=== PATIENT | male | born 1965 | race Caucasian/White ===

== ENCOUNTER 2017-10-25 21:56 | Emergency (ER) | payer BC ==
--- NOTE | 2017-10-25 21:57 | UC ---
Skin Complaint HPI - HPI Summary HPI Summary: 52 yo male presents with rash to right index finger since this morning. He tells me that he was outdoors a lot in the last few days and has several bug bites all over his body. Yesterday he noticed a bite to his right index finger. This morning he woke up and the area developed in blisters. He saw his PCP and was diagnosed with an allergic/contact reaction and prescribed prednisone. He has not started taking the prednisone yet. He comes to because he is concerned that there seems to be more bumps forming with increased redness. Denies fever, chills, difficulty breathing, SOB, or chest pain. - History of Current Complaint Time Seen by Provider: 10/25/17 21:57 Stated Complaint: SORE ON HAND Hx Obtained From: Patient Onset/Duration: Sudden Onset Timing: Constant Onset Severity: Mild Current Severity: Mild Pain Intensity: 3 Pain Scale Used: 0-10 Numeric - Allergy/Home Medications Allergies/Adverse Reactions: Allergies Allergy/AdvReac Type Severity Reaction Status Date / Time seasonal Allergy Unknown Uncoded 10/25/17 22:01 hayfever/environmental Reaction Details Review of Systems Constitutional: Negative Skin: Other - Blister right index finger Respiratory: Negative Cardiovascular: Negative Neurovascular: Negative Neurological: Negative Psychological: Negative All Other Systems Reviewed And Are Negative: Yes PMH/Surg Hx/FS Hx/Imm Hx Cardiovascular History: Hypertension GI/ History: Gastroesophageal Reflux - Surgical History Surgical History: Yes Surgery Procedure, Year, and Place: 2006 LAPAROSCOPIC CHOLECYSTECTOMY, [facility] [place]. 2003 L[place]OMA REMOVED, [facility] [place]. 1995 TESTICLE TORSION REPAIR, [facility] – [place]. 1968 TONSILLECTOMY, [place], [place] - Family History Known Family History: Positive: Other - No FHx CVA, diverticulitis, diverticulosis - Social History Occupation: Employed Full-time Lives: With Family Alcohol Use: Rare Substance Use Type: None Smoking Status (MU): Never Smoked Tobacco Physical Exam - Summary Physical Exam Summary: GENERAL: NAD. WDWN. No pain distress. SKIN: RIGHT index finger: Dorsal surface between the PIP and MCP there are a cluster of blisters 1mm-3mm in size with clear fluid and scant ecchymosis and erythema. Mildly TTP. Faint erythema extending to mid 2nd MC without tenderness or warmth. No streaking, bleeding, or drainage. NECK: Supple. Nontender. No lymphadenopathy. CHEST: No accessory muscle use. Breathing comfortably and in no distress. CV: Pulses intact. Cap refill <2seconds NEURO: Alert. PSYCH: Age appropriate behavior. Triage Information Reviewed: Yes Vital Signs: Vital Signs: Temp Pulse Resp BP Pulse Ox 99.2 F 85 18 136/72 100 10/25/17 21:57 10/25/17 21:57 10/25/17 21:57 10/25/17 21:57 10/25/17 21:57 Vital Signs Reviewed: Yes Course/Dx - Course Course Of Treatment: Suspect allergic reaction. Pt is very concerned about a cellulitis and wishes to be on antibiotics. Will start him with keflex and advise him to start his prednisone prescribed by his PCP. - Diagnoses Provider Diagnoses: Contact allergic reaction to right index finger Discharge - Sign-Out/Discharge Documenting (check all that apply): Patient Departure All imaging exams completed and their final reports reviewed: No Studies - Discharge Plan Condition: Stable Disposition: HOME Prescriptions: Cephalexin CAP* [Keflex CAP*] 500 mg PO BID #14 cap Patient Education Materials: Acute Rash (ED) Referrals: Donn Garcia DO [Primary Care Provider] - Additional Instructions: If you develop a fever, shortness of breath, chest pain, new or worsening symptoms - please call your PCP or go to the ED. Your blood pressure was high at todays visit. Please see your primary provider within 4 weeks for recheck and re-evaluation. 1) Please start your steroid medication that your primary doctor prescribed for you earlier today - Billing Disposition and Condition Condition: STABLE Disposition: Home - Attestation Statements Provider Attestation: I was available for consult. This patient was seen by the JOSE. The patient was not presented to, seen by, or examined by me. -Juju
[2017-10-25 22:01] VITALS: BP 136/72
--- OUTSIDE RECORDS SUMMARY | 2017-10-25 22:01 | XMS REPORT ---
:1965 External Reference #:[id number] Author Organization [facility] Address [address] [place] [address] Phone [phone] Care Team Providers Name Role Phone HCP given Primary Care Physician Unavailable Payers Type Date Identification Numbers Payment Provider Subscriber Commercial Policy Number: [id number] [employer] Ind/Ppo/Hmo/Pos Keke Guy PayID: [id number] [id number] [place] [id number] Problems Date Description Provider Status Onset: 10/19/2014 Essential hypertension Donn Garcia D.O. Active Onset: 01/18/2016 Iron deficiency anemia Mary Blanton PA Active Onset: 01/05/2015 Acute maxillary sinusitis Donn Garcia D.O. Active Onset: 10/19/2014 Essential hypertension Donn Garcia D.O. Active Onset: 10/19/2014 Gastroesophageal reflux disease Donn Garcia D.O. Active Family History Date Family Member(s) Problem(s) Comments Father Melanoma Mother CLL Mother Melanoma Paternal Grandmother CLL Social History Type Date Description Comments Marital Status Work Status Currently Working Cigarette Use Denies Cigarette Use ETOH Use 09/06/2015 Rarely consumes alcohol Recreational Drug Use Denies Drug Use Smoking Non Smoker Daily Caffeine Consumes Caffeine OCCASIONAL Exercise Type/Frequency Exercises sporadically Sun Exposure Uses sunscreen Seat Belt/Car Seat Seat Belt Use - Yes Guns in Home No Smoke Alarms Yes smoke alarm Currently Active Patient is currently sexually active Allergies, Adverse Reactions, Alerts Date Description Reaction Status Severity Comments 10/19/2014 NKDA active Medications Medication Date Status Form Strength Qnty SIG Indications Ordering Provider Methylprednisolon 10/25 Hx Tablets 4mg 21tab 6 tabs on L23.89 Sopchak, e s day 1; Donn, - then 5 D.O. 10/31 tabs day2; then 4 tabs ay3; then 3 tabs day4; then 2 tabs day 5; then 1 tab day 6 Vitamin D3 07/30 Active Capsules 5000Unit 90cap 1 by mouth Sopchak, Maximum Strength s every day Donn, or 7 D.O. tablets once a week Viagra 07/30 Active Tablets 25mg 30tab take 1-2 F52.21 cha s hours Donn, before D.O. anticipate d sexual intercours e Pantoprazole 10/[address] 40mg 90tab take one K21.9 Silcoff, Sodium s tablet by Richardson mouth once M.D. daily for acid reflux Triamterene/Bisbee 10/13 Active Capsules 37.5-25mg 90cap Take One I10 Sopchak, chlorothiazide s Capsule By Donn, Mouth D.O. Every Day Nasonex 05/25 Active Suspension 50mcg/Act 17gm spray 1 co spray into Richardson, each M.D. nostril every night at bedtime as needed Viagra 06/26 Hx Tablets 100mg 2tabs take 02/06 F5.21 to one Donn, - tablet up D.O. 07/30 to once daily as needed for erectile dysfunctio n; max 1 dose/day Doxycycline 02/14 Hx Capsules 100mg 20cap 1 twice a J20.9 Jose, Hyclate s day for 10 Donn, - days D.O. 02/24 Azithromycin 10/25 Hx Tablets 250mg 6tabs 2 tabs by J20.9 Silcoff, mouth Richardson, - daily x1 M.D. 02/13 day then tab by mouth daily x4 days Afrin Sinus 04/28 Hx Solution 0.05% 15ml inhale 2 J01.00 Sopcha sprays Donn, - into D.O. 05/01 nostril times per day every 10 to 12 hours as needed for stuffy nose for 3 days only! Amoxicillin/Clavu 04/28 Hx Tablets 875-125mg 20tab 1 by mouth J01.00 Jose, lanate s twice a Donn, - day D.O. 05/08 Iferex 150 09/05 Hx Capsules 150mg 100ca 1 tablet D50.9 Silco, ps daily, for Richardson, - iron M.D. 11/20 deficiency /2015 Ondansetron 09/04 Hx Tablets 4mg prn Dispers - 11/20 Ciprofloxacin HCL 08/24 Hx Tablets 500mg 10tab 1 by mouth R19.7 Silcoff , s twice a Richardson, - day for M.D. 08/29 3-5 days, for diarrheal illness Flonase Allergy 08/22 Hx Suspension 50mcg/Act 47.40 2 sprays J01.00 Jose, 0ml twice a Donn, - day until D.O. 09/22 better. /2015 Vitamin D3 01/04 Hx Capsules 5000Unit take one capsule by - mouth 01/16 every day Amoxicillin 11/10 Hx Capsules 500mg 42cap 2 cap by J01.00 Sopchak, s mouth Donn, - twice a D.O. Afrin Sinus 11/10 Hx Solution 0.05% 15ml administer J01.00 Sopchak, 2 or 3 Donn, - sprays D.O. 11/20 (0.05% solution) into each nostril anthony administer 2 or 3 sprays (0.05% solution) into each nostril Neti Pot Kit 11/10 Hx Kit 2300-700m 1unit use as J01.00 Sopvaishalik, Sinus Wash/Clear g s directed Donn, View Kettle - D.O. 12/11 Immunizations CPT Code Status Date Vaccine Lot # [id number] Given 06/05/2017 Shingrix Zoster (Shingles) Vaccine (HZV) [id number] Recomb,Subnit,Adjuvanted 97199 Given 12/31/2016 Influenza Virus Vaccine, Quadrivalent, Split, Preservative Free 98433 Given 11/22/2015 Influenza Virus Vaccine, Quadrivalent, Split, [id number] Preservative Free 23348 Given 01/05/2015 Influenza Virus Vaccine, Quadrivalent, Split, [id number] Preservative Free 19421 Given 10/30/2013 Flu, Split Virus 3Yrs 43803 Given 10/26/2011 Flu, Split Virus 3Yrs 01227 Given 05/29/2011 Adacel or Boostrix, TDaP 65291 Given 10/21/1999 Td Immunization Vital Signs Date Vital Result Comment 10/25/2017 BP Systolic 132 mmHg BP Diastolic 70 mmHg Weight 191.00 lb 07/30/2017 BP Systolic 154 mmHg BP Diastolic 82 mmHg BP Systolic Recheck 148 mmHg recheck ra BP Diastolic Recheck 80 mmHg recheck ra Weight 193.00 lb 06/26/2017 BP Systolic 134 mmHg BP Diastolic 78 mmHg 06/05/2017 BP Systolic 140 mmHg BP Diastolic 84 mmHg Height 69.5 inches 5'9.50" Weight 188.00 lb BMI (Body Mass Index) 27.4 kg/m2 04/11/2017 BP Systolic 150 mmHg BP Diastolic 90 mmHg BP Systolic Recheck 142 mmHg BP Diastolic Recheck 90 mmHg Weight 189.00 lb 02/14/2017 BP Systolic 120 mmHg BP Diastolic 78 mmHg Body Temperature 98.2 F Weight 183.00 lb 10/25/2016 BP Systolic 130 mmHg BP Diastolic 72 mmHg Body Temperature 98.7 F Height 70.5 inches 5'10.50" with sneakers Weight 188.00 lb with sneakers BMI (Body Mass Index) 26.6 kg/m2 04/28/2016 BP Systolic 122 mmHg BP Diastolic 70 mmHg Body Temperature 99.0 F Weight 186.00 lb w/shoes 01/18/2016 BP Systolic 134 mmHg BP Diastolic 80 mmHg Heart Rate 68 /min O2 % BldC Oximetry 97 % Body Temperature 97.7 F Height 69.75 inches 5'9.75" Weight 183.00 lb BMI (Body Mass Index) 26.4 kg/m2 11/22/2015 BP Systolic 142 mmHg BP Diastolic 90 mmHg Weight 182.00 lb with shoes 09/06/2015 BP Systolic 120 mmHg BP Diastolic 80 mmHg Body Temperature 98.5 F Weight 184.00 lb with sandals 08/25/2015 BP Systolic 126 mmHg BP Diastolic 76 mmHg Body Temperature 99.4 F Weight 180.00 lb w/shoes 08/23/2015 BP Systolic 142 mmHg BP Diastolic 76 mmHg Body Temperature 100.7 F Height 70 inches 5'10" Weight 185.00 lb BMI (Body Mass Index) 26.5 kg/m2 01/05/2015 BP Systolic 122 mmHg BP Diastolic 73 mmHg Heart Rate 77 /min Weight 187.00 lb w/shoes 11/10/2014 BP Systolic 129 mmHg BP Diastolic 78 mmHg Heart Rate 68 /min Body Temperature 98.5 F Weight 183.00 lb w/shoes 10/19/2014 BP Systolic 124 mmHg BP Diastolic 78 mmHg Height 69.50 inches 5'9.50" Weight 182.00 lb BMI (Body Mass Index) 26.5 kg/m2 Results Test Date Test Result H/L Range Note Testosterone Profile 07/18/2017 Testosterone 339 ng/dL 240-950 1 Free Testosterone ng/dl 9.83 ng/dL 4.06-15.6 2 Bioavailable Testosterone 102 ng/dL 50-190 3 Laboratory test finding 07/18/2017 Vitamin B12 573 pg/mL 180-914 4 Comp Metabolic Panel 06/19/2017 Sodium 142 mmol/L 139-145 Potassium 3.6 mmol/L 3.5-5.0 Chloride 101 mmol/L 101-111 Co2 Carbon Dioxide 33 mmol/L High 22-32 Anion Gap 8 mmol/L 2-11 Glucose 77 mg/dL 70-100 Blood Urea Nitrogen 19 mg/dL 6-24 Creatinine 1.05 mg/dL 0.67-1.17 BUN/Creatinine Ratio 18.1 8-20 Calcium 9.3 mg/dL 8.6-10.3 Total Protein 6.9 g/dL 6.4-8.9 Albumin 4.4 g/dL 3.2-5.2 Globulin 2.5 g/dL 2-4 Albumin/Globulin Ratio 1.8 1-3 Total Bilirubin 2.30 mg/dL High 0.2-1.0 Alkaline Phosphatase 44 U/L 34-104 Alt 46 U/L 7-52 Ast 32 U/L 13-39 Egfr Non- 73.6 >60 Egfr 94.7 >60 5 Laboratory test finding 06/19/2017 Hepatitis B Core AB Negative Negative 6 Total Hepatitis B Mitzy AB Titer 06/19/2017 Hepatitis B Surface AB Not Immune Immune Hep B Surf AB Level < 3.10 mIU/mL >12 Laboratory test finding 06/19/2017 Hepatitis B Surface Ag Nonreactive Nonreactive Vitamin D Total 25(Oh) 14.6 ng/mL Low 20-50 Hemochromatosis Hereditary 06/19/2017 Hemochromatosis Result See Comment 7 Dna Summary Hemochromatosis Specimen WB Whole Blood Hemochromatosis Method See Comment 8 Hemochromatosis Results See Comment 9 Hemochromatosis Interpretation See Comment 10 Hemochromatosis Reviewed By See Comment 11 Laboratory test finding 06/19/2017 Copper, Serum 0.93 g/mL 0.75-1.45 12 Quantiferon Gold TB 04/11/2017 QuantiFERON-Tb Gold Negative Negative 13 Plus TB1 Ag minus Nil Result 0 IU/mL TB2 Ag minus Nil Result -0.01 IU/mL TB Mitogen minus Nil Result > 10.00 IU/mL TB Nil Result 0.02 IU/mL 14 Laboratory test finding 04/11/2017 Ferritin 20.2 ng/mL Low 24-336 Iron & Iron Binding Capacity 04/11/2017 Iron 92 g/dL 50-212 Unsaturated Iron Binding 415 g/dL Total Iron Binding Capacity 507 g/dL High 250-450 % Iron Saturation 18 % 15-55 CBC Auto Diff 04/11/2017 White Blood Count 6.5 10^3/uL 3.5-10.8 Red Blood Count 5.10 10^6/uL 4.0-5.4 Hemoglobin 15.0 g/dL 14.0-18.0 Hematocrit 43 % 42-52 Mean Corpuscular Volume 85 fL 80-94 Mean Corpuscular Hemoglobin 30 pg 27-31 Mean Corpuscular HGB Conc 35 g/dL 31-36 Red Cell Distribution Width 13 % 10.5-15 Platelet Count 258 10^3/uL 150-450 Mean Platelet Volume 7 um3 Low 7.4-10.4 Abs Neutrophils 4.0 10^3/uL 1.5-7.7 Abs Lymphocytes 1.5 10^3/uL 1.0-4.8 Abs Monocytes 0.6 10^3/uL 0-0.8 Abs Eosinophils 0.4 10^3/uL 0-0.6 Abs Basophils 0.1 10^3/uL 0-0.2 Abs Nucleated RBC 0 10^3/uL Granulocyte % 60.9 % 38-83 Lymphocyte % 23.3 % Low 25-47 Monocyte % 8.5 % High 0-7 Eosinophil % 5.4 % 0-6 Basophil % 1.9 % 0-2 Nucleated Red Blood Cells % 0.1 Urinalysis Profile 04/11/2017 Urine Color Yellow Urine Appearance Clear Urine Specific [place]ward 1.012 1.010-1.030 Urine pH 7.0 5-9 Urine Urobilinogen Negative Negative Urine Ketones Negative Negative Urine Protein Negative Negative Urine Leukocytes Negative Negative Urine Blood Negative Negative Urine Nitrite Negative Negative Urine Bilirubin Negative Negative Urine Glucose Negative Negative Lipid Profile (Trig/Chol/HDL) 04/11/2017 Triglycerides 63 mg/dL 15 Cholesterol 136 mg/dL 16 HDL Cholesterol 55.3 mg/dL 17 LDL Cholesterol 68 mg/dL 18 Comp Metabolic Panel 04/11/2017 Sodium 141 mmol/L 133-145 Potassium 3.4 mmol/L Low 3.5-5.0 Chloride 101 mmol/L 101-111 Co2 Carbon Dioxide 32 mmol/L 22-32 Anion Gap 8 mmol/L 2-11 Glucose 129 mg/dL High 70-100 Blood Urea Nitrogen 17 mg/dL 6-24 Creatinine 1.01 mg/dL 0.67-1.17 BUN/Creatinine Ratio 16.8 8-20 Calcium 9.5 mg/dL 8.6-10.3 Total Protein 6.9 g/dL 6.4-8.9 Albumin 4.5 g/dL 3.2-5.2 Globulin 2.4 g/dL 2-4 Albumin/Globulin Ratio 1.9 1-3 Total Bilirubin 1.70 mg/dL High 0.2-1.0 Alkaline Phosphatase 43 U/L 34-104 Alt 67 U/L High 7-52 Ast 44 U/L High 13-39 Egfr Non- 77.3 >60 Egfr 99.4 >60 19 Laboratory test finding 04/11/2017 PSA Screening 1.117 ng/mL 0-4.000 20 Quantiferon Gold TB 01/18/2016 M tuberculosis by Negative Negative 21 Quantiferon TB Ag minus Nil Result 0 IU/mL TB Mitogen minus Nil Result > 10.00 IU/mL TB Nil Result 0.05 IU/mL 22 Retic Count 12/02/2015 Retic Count 1.7 % High 0.5-1.5 Corrected Retic Count 1.4 % 0.5-1.5 Maturation Factor Retic 1.5 Retic Index 0.90 Mean Retic Volume 92.0 Immature Retic Fraction 0.49 RBC Retic Count 5.02 10^6/uL 4.6-6.2 Hematocrit for Retic CNT 36 % Low 42-52 Iron & Iron Binding Capacity 12/02/2015 Iron 48 g/dL Low 50-212 Unsaturated Iron Binding 463 g/dL Total Iron Binding Capacity 511 g/dL High 250-450 % Iron Saturation 9 % Low 15-55 Laboratory test finding 12/02/2015 Ferritin < 10.0 ng/mL Low 24-336 23 Basic Metabolic Panel 12/02/2015 Sodium 138 mmol/L 133-145 Potassium 3.3 mmol/L Low 3.5-5.0 Chloride 101 mmol/L 101-111 Co2 Carbon Dioxide 32 mmol/L 22-32 Anion Gap 5 mmol/L 2-11 Glucose 120 mg/dL High 70-100 Blood Urea Nitrogen 20 mg/dL 6-24 Creatinine 0.98 mg/dL 0.67-1.17 BUN/Creatinine Ratio 20.4 High 8-20 Calcium 9.1 mg/dL 8.6-10.3 Egfr Non- 80.3 >60 Egfr 103.3 >60 24 CBC Auto Diff 12/02/2015 White Blood Count 5.8 10^3/uL 3.5-10.8 Red Blood Count 5.02 10^6/uL 4.0-5.4 Hemoglobin 11.4 g/dL Low 14.0-18.0 Hematocrit 36 % Low 42-52 Mean Corpuscular Volume 71 fL Low 80-94 25 Mean Corpuscular Hemoglobin 23 pg Low 27-31 Mean Corpuscular HGB Conc 32 g/dL 31-36 Red Cell Distribution Width 16 % High 10.5-15 Platelet Count 262 10^3/uL 150-450 Mean Platelet Volume 8 um3 7.4-10.4 Abs Neutrophils 3.5 10^3/uL 1.5-7.7 Abs Lymphocytes 1.2 10^3/uL 1.0-4.8 Abs Monocytes 0.5 10^3/uL 0-0.8 Abs Eosinophils 0.5 10^3/uL 0-0.6 Abs Basophils 0.1 10^3/uL 0-0.2 Abs Nucleated RBC 0 10^3/uL Granulocyte % 59.7 % 38-83 Lymphocyte % 21.3 % Low 25-47 Monocyte % 9.4 % High 1-9 Eosinophil % 8.2 % High 0-6 Basophil % 1.4 % 0-2 Nucleated Red Blood Cells % 0 Urine Micro Inhouse 11/22/2015 Ua WBC 0-1 26 Ua RBC - 26 Ua Casts - 26 Ua Epi many 26 Ua Other - 26 Ua Glucose - 26 Ua Bilirubin sm 26 Ua Ketones - 26 Ua Specific Hayward 1.030 26 Ua Blood - 26 Ua PH 6.0 26 Ua Protein tr 26 Ua Urobilinogen - 26 Ua Nitrite - 26 Ua Leukocytes - 26 Laboratory test finding 09/07/2015 Stool Culture SEE RESULT BELOW 27 Urinalysis Profile 09/05/2015 Urine Color Yellow Urine Appearance Clear Urine Specific Hayward 1.015 1.010-1.030 Urine pH 6.0 5-9 Urine Urobilinogen Negative Negative Urine Ketones Negative Negative Urine Protein Negative Negative Urine Leukocytes Negative Negative Urine Blood Negative Negative Urine Nitrite Negative Negative Urine Bilirubin Negative Negative Urine Glucose Negative Negative Laboratory test finding 09/05/2015 Lactic Acid 0.6 mmol/L 0.5-2.0 28 Comp Metabolic Panel 09/05/2015 Sodium 137 mmol/L 133-145 Potassium 3.3 mmol/L Low 3.5-5.0 Chloride 99 mmol/L Low 101-111 Co2 Carbon Dioxide 31 mmol/L 22-32 Anion Gap 7 mmol/L 2-11 Glucose 102 mg/dL High 70-100 Blood Urea Nitrogen 16 mg/dL 6-24 Creatinine 1.04 mg/dL 0.67-1.17 BUN/Creatinine Ratio 15.4 8-20 Calcium 9.2 mg/dL 8.6-10.3 Total Protein 7.1 g/dL 6.4-8.9 Albumin 4.2 g/dL 3.2-5.2 Globulin 2.9 g/dL 2-4 Albumin/Globulin Ratio 1.4 1-3 Total Bilirubin 1.40 mg/dL High 0.2-1.0 Alkaline Phosphatase 68 U/L 34-104 Alt 53 U/L High 7-52 Ast 88 U/L High 13-39 Egfr Non- 75.0 >60 Egfr 96.4 >60 29 Laboratory test finding 09/05/2015 Lipase 61 U/L 11.0-82.0 C Reactive Protein 12.87 mg/L High < 5.00 30 Cell Morphology 09/05/2015 Microcytosis 2+ Hypochromasia 1+ Rouleaux 1+ Elliptocyte 1+ Laboratory test 09/05/2015 Pathologist Review (SEE NOTE) 31 finding Laboratory test 09/05/2015 C Difficile B PCR SEE RESULT BELOW 32 finding CBC Auto Diff 09/05/2015 White Blood Count 11.6 10^3/uL High 3.5-10.8 Red Blood Count 4.96 10^6/uL 4.0-5.4 Hemoglobin 11.1 g/dL Low 14.0-18.0 Hematocrit 35 % Low 42-52 Mean Corpuscular Volume 70 fL Low 80-94 Mean Corpuscular Hemoglobin 22 pg Low 27-31 Mean Corpuscular HGB Conc 32 g/dL 31-36 Red Cell Distribution Width 17 % High 10.5-15 Platelet Count 290 10^3/uL 150-450 Mean Platelet Volume 6 um3 Low 7.4-10.4 Abs Neutrophils 9.8 10^3/uL High 1.5-7.7 Abs Lymphocytes 0.8 10^3/uL Low 1.0-4.8 Abs Monocytes 0.7 10^3/uL 0-0.8 Abs Eosinophils 0.2 10^3/uL 0-0.6 Abs Basophils 0.1 10^3/uL 0-0.2 Abs Nucleated RBC 0.01 10^3/uL Granulocyte % 84.5 % High 38-83 Lymphocyte % 7.2 % Low 25-47 Monocyte % 5.9 % 1-9 Eosinophil % 1.8 % 0-6 Basophil % 0.6 % 0-2 Nucleated Red Blood Cells % 0 Basic Metabolic Panel 01/05/2015 Sodium 141 mmol/L 133-145 Potassium 3.9 mmol/L 3.5-5.0 Chloride 102 mmol/L 101-111 Co2 Carbon Dioxide 33 mmol/L High 22-32 Anion Gap 6 mmol/L 2-11 Glucose 102 mg/dL High 70-100 Blood Urea Nitrogen 18 mg/dL 6-24 Creatinine 0.97 mg/dL 0.67-1.17 BUN/Creatinine Ratio 18.6 8-20 Calcium 9.4 mg/dL 8.6-10.3 Egfr Non- 81.6 >60 Egfr 104.9 >60 33 Laboratory test finding 11/03/2014 Hepatitis C Antibody Nonreactive Nonreactive Vitamin B12 726 pg/mL 180-914 34 Vitamin D Total 25(Oh) 21.8 ng/mL Low 30-50 1 ADDITIONAL INFORMATION Testing performed by Liquid Chromatography-Tandem Mass Spectrometry (LC-MS/MS). This test was developed and its performance characteristics determined by [facility] in a manner consistent with CLIA requirements. This test has not been cleared or approved by the U.S. Food and Drug Administration. 2 ADDITIONAL INFORMATION Testing performed by Equilibrium Dialysis. This test was developed and its performance characteristics determined by [facility] in a manner consistent with CLIA requirements. This test has not been cleared or approved by the U.S. Food and Drug Administration. 3 ADDITIONAL INFORMATION Testing performed by Differential Precipitation. This test was developed and its performance characteristics determined by [facility] in a manner consistent with CLIA requirements. This test has not been cleared or approved by the U.S. Food and Drug Administration. Test Performed by: [facility] [employer] [facility] [place] [facility] [place] [address] 4 Normal Range 180 to 914 Indeterminate Range 145 to 180 Deficient Range <145 5 Because ethnic data is not always readily available, this report includes an eGFR for both -Americans and non- Americans. The National Kidney Disease Education Program (NKDEP) does not endorse the use of the MDRD equation for patients that are not between the ages of 18 and 70, are , have extremes of body size, muscle mass, or nutritional status, or are non- or non-. According to the National Kidney Foundation, irrespective of diagnosis, the stage of the disease is based on the level of kidney function: Stage Description GFR(mL/min/1.73 m(2)) 1 Kidney damage with normal or decreased GFR 90 2 Kidney damage with mild decrease in GFR 60-89 3 Moderate decrease in GFR 30-59 4 Severe decrease in GFR 15-29 5 Kidney failure <15 (or dialysis) 6 Test Performed by: [facility] [employer] [place] [address] 7 RESULT: COMPLEX (SEE RESULT AND INTERPRETATION) 8 A multiplex PCR based assay utilizing the [employer] Mass Array platform was used to test for the following three mutations in the HFE gene; C282Y, H63D, and S65C. Because of the minimal effect on iron metabolism associated with the S65C mutation, it is only reported when it is found with the C282Y mutation (i.e. if the patient has the C282Y/S65C genotype). 9 C282Y: Not detected. H63D: Not detected. 10 This result reduces the risk but does not rule out either a diagnosis of or predisposition for hereditary hemochromatosis (HH). In the [place] population, approximately 5 to 8% of individuals with HH do not have either the p.C282Y or p.H63D mutation. For other ethnicities, the proportion of individuals with HH who do not have either the p.C282Y or p.H63D alteration may differ. This assay does not rule out the presence of other disease-causing mutations in the HFE gene or in other genes associated with hemochromatosis. Genotyping results should be interpreted in the context of clinical findings, family history, and other laboratory testing (e.g. serum transferrin-iron saturation and serum ferritin). Genetic testing and other laboratory testing of an affected family member can determine if this result is of predictive value for this individual. A genetic consultation may be of benefit. ADDITIONAL INFORMATION An online research opportunity called [employer] ([email or web address]), a project of [employer], is available for the recipient of this genetic test. This patient registry collects de-identified genetic and health information to advance the knowledge of genetic variants. [facility] is a collaborator of [employer]. This may not be applicable for all tests. Test results should be interpreted in the context of clinical findings, family history, and other laboratory data. Misinterpretation of results may occur if the information provided is inaccurate or incomplete. Rare polymorphisms exist that could lead to false-negative or false-positive results. If results obtained do not match the clinical findings, additional testing should be considered. Bone Marrow transplants from allogenic donors will interfere with testing. Call [facility] for instructions for testing patients who have received a bone marrow transplant. Multiple in-silico evaluation tools may have been used to assist in the interpretation of these results. Of note, the sensitivity and specificity of these tools for the determination of pathogenicity is currently unvalidated. This test was developed and its performance characteristics determined by [facility] in a manner consistent with CLIA requirements. This test has not been cleared or approved by the U.S. Food and Drug Administration. 11 RESULT: Hien Bojorquez M.D. Test Performed by: [facility] - [address] [address] 12 ADDITIONAL INFORMATION This test was developed and its performance characteristics determined by [facility] in a manner consistent with CLIA requirements. This test has not been cleared or approved by the U.S. Food and Drug Administration. Test Performed by: [facility] - [address] [address] 13 No interferon-gamma response to M. tuberculosis antigens was detected. Infection with M. tuberculosis is unlikely. A single negative result does not exclude infection with M. tuberculosis. In patients at high risk for M.tuberculosis infection, a second test should be considered in accordance with the 2017 ATS/IDSA/CDC Clinical Practice Guidelines for Diagnosis of Tuberculosis in Adults and Children [Lewinsohn DM et. al. Clin. Infect. Dis. 2017;64(2):111-115]. 14 Test Performed by: [facility] - [address] [address] 15 Desirable: <150 Borderline High: 150-199 High: 200-499 Very High: >500 16 Desirable: <200 Borderline High: 200-239 High: >239 17 Low: <40 Desirable: 40-60 High: >60 18 Desirable: <100 Near Optimal: 100-129 Borderline High: 130-159 High: 160-189 Very High: >189 19 Because ethnic data is not always readily available, this report includes an eGFR for both -Americans and non- Americans. The National Kidney Disease Education Program (NKDEP) does not endorse the use of the MDRD equation for patients that are not between the ages of 18 and 70, are , have extremes of body size, muscle mass, or nutritional status, or are non- or non-. According to the National Kidney Foundation, irrespective of diagnosis, the stage of the disease is based on the level of kidney function: Stage Description GFR(mL/min/1.73 m(2)) 1 Kidney damage with normal or decreased GFR 90 2 Kidney damage with mild decrease in GFR 60-89 3 Moderate decrease in GFR 30-59 4 Severe decrease in GFR 15-29 5 Kidney failure <15 (or dialysis) 20 Serum levels of PSA measured using the Hardik Busuu DXI Hybritech immunoassay should not be interpreted as absolute evidence of the presence or absence of disease. The PSA value should be used in conjunction with other pertinent clinical diagnostic procedures. The values obtained with different assay methods or kits cannot be used interchangeably. 21 No interferon-gamma response to M. tuberculosis antigens was detected. Infection with M. tuberculosis is unlikely. A negative result alone does not exclude infection with M. tuberculosis. For detailed information regarding test interpretation see: www.[employer]/test-catalog/ Clinical+and+Interpretive/51205 22 Test Performed by: [place] [address] Chain Saw Mechanic: Dario Moura II, M.D., Ph.D. 23 Copy Result to: Don ROMEO [facility] [place] ([id number]) 24 Because ethnic data is not always readily available, this report includes an eGFR for both -Americans and non- Americans. The National Kidney Disease Education Program (NKDEP) does not endorse the use of the MDRD equation for patients that are not between the ages of 18 and 70, are , have extremes of body size, muscle mass, or nutritional status, or are non- or non-. According to the National Kidney Foundation, irrespective of diagnosis, the stage of the disease is based on the level of kidney function: Stage Description GFR(mL/min/1.73 m(2)) 1 Kidney damage with normal or decreased GFR 90 2 Kidney damage with mild decrease in GFR 60-89 3 Moderate decrease in GFR 30-59 4 Severe decrease in GFR 15-29 5 Kidney failure <15 (or dialysis) 25 Consistent with previous results on 09/05/15. 26 void, clear, gold 27 SEE RESULT BELOW Name: BROOKSFRANKO Art : [address]: Richardson Melara MD Acct: [id number] Unit: [id number] AGE: 50 Location: [facility] Re09/07/15 SEX: M Status: REG REF SPEC: [id number] SHAVON: 09/07/15-[address]: Richardson Melara MD REQ: [id number] RECD: 09/07/15 STATUS: COMP _ SOURCE: STOOL SPDESC: ORDERED: Stool Culture, Fecal Lactoferr Procedure Result Reported Site Stool Culture Final 09/09/15- 1138 ML Result No enteric pathogens isolated Testing for Salmonella, Shigella, Aeromonas, Plesiomonas, Yersinia and Campylobacter are included in a Stool Culture. Vibrio spp not routinely tested for in a stool culture. If testing is desired, please request specifically when placing test order. Sensitivities not routinely performed on stool isolates, as antibiotics may prolong the carriage rate of bacteria. Please contact the microbiology lab if sensitivities are required. Stool Specimen Description Final 09/07/15- 142 ML Stool Color Brown Stool Form Nonformed Stool Consistency Soft Shiga Toxin 1 2 Final 09/08/15- 53 ML Organism 1 Negative Shiga Toxin 1 2 Immunochromatographic Assay CONTINUED ON NEXT PAGE * ML=Testing performed at Main Lab DEPARTMENT OF PATHOLOGY, [address] [place] [address] Gaetano Ramires M.D. Director [facility] # [id number] Patient: FRANKO GUY [id number] (Continued) Specimen: [id number] Collected: 09/07/15 Received: 09/07/15 (Continued) Procedure Result Reported Site Shiga Toxin 1 2 Final (continued) 09/08/15- 0853 Fecal Lactoferrin (Stool WBC) Final 09/07/15- 1421 ML Fecal Lactoferrin Positive by Immunoassay TEST LIMITATIONS: Assay detects elevated levels of lactoferrin released from fecal leukocytes as a marker of intestinal inflammation. The test may not be appropriate in immunocompromised persons. Fecal samples from breast fed infants should not be used with this assay. * ML - [facility] . END OF REPORT * ML=Testing performed at Main Lab DEPARTMENT OF PATHOLOGY, [address] [place] [address] Gaetano Ramires M.D. Director [facility] # [id number] 28 [facility] Severe Sepsis and Septic Shock Management Bundle Measure requires all lactic acids initially measuring >2.0 mmol/L be repeated. 29 Because ethnic data is not always readily available, this report includes an eGFR for both -Americans and non- Americans. The National Kidney Disease Education Program (NKDEP) does not endorse the use of the MDRD equation for patients that are not between the ages of 18 and 70, are , have extremes of body size, muscle mass, or nutritional status, or are non- or non-. According to the National Kidney Foundation, irrespective of diagnosis, the stage of the disease is based on the level of kidney function: Stage Description GFR(mL/min/1.73 m(2)) 1 Kidney damage with normal or decreased GFR 90 2 Kidney damage with mild decrease in GFR 60-89 3 Moderate decrease in GFR 30-59 4 Severe decrease in GFR 15-29 5 Kidney failure <15 (or dialysis) 30 Acute inflammation: >10.00 31 Leukocytosis with absolute neutrophilia indicative of acute inflammatory/reactive process. Hypochromic microcytic anemia suggestive of iron deficiency. Additional studies as clinically warranted. Reviewed by Dr. Ramires 32 SEE RESULT BELOW Name: FRANKO GUY : [address]: Rod Connor MD Acct: [id number] Unit: [id number] AGE: 50 Location: ED Re09/05/15 SEX: M Status: DEP ER SPEC: [id number] SHAVON: 09/05/15-1403 [facility] DR: Rod Connor MD REQ: [id number] RECD: 09/05/15 STATUS: LILLI YUN DR: Donn Garcia DO _ SOURCE: STOOL SPDESC: ORDERED: C. diff PCR Procedure Result Reported Site Stool Specimen Description Final 09/05/15- 1925 ML Stool Color Brown Stool Form Nonformed Stool Consistency Liquid C. difficile PCR Final 09/05/15- 2009 ML Organism 1 027 Presumptive NEGATIVE Organism 2 Toxigenic C.diff NEGATIVE * ML - MAIN LAB ([facility]) . END OF REPORT * ML=Testing performed at Main Lab DEPARTMENT OF PATHOLOGY, [address] [place] [address] Gaetano Ramires M.D. Director [facility] # [id number] 33 Because ethnic data is not always readily available, this report includes an eGFR for both -Americans and non- Americans. The National Kidney Disease Education Program (NKDEP) does not endorse the use of the MDRD equation for patients that are not between the ages of 18 and 70, are , have extremes of body size, muscle mass, or nutritional status, or are non- or non-. According to the National Kidney Foundation, irrespective of diagnosis, the stage of the disease is based on the level of kidney function: Stage Description GFR(mL/min/1.73 m(2)) 1 Kidney damage with normal or decreased GFR 90 2 Kidney damage with mild decrease in GFR 60-89 3 Moderate decrease in GFR 30-59 4 Severe decrease in GFR 15-29 5 Kidney failure <15 (or dialysis) 34 Normal Range 180 to 914 Indeterminate Range 145 to 180 Deficient Range <145 Procedures Date CPT Code Description Status Comment 02/06/2008 Colonoscopy Completed f/u 10 years Encounters Type Date Location Provider CPT E/M Dx Office Visit 10/25/2017 3:45p Main Office Donn Garcia D.O. 29149 L23.89 Office Visit 07/30/2017 4:00p Main Office Donn Garcia D.O. 02580 F52.21 R53.83 J01.00 I10 Office Visit 06/26/2017 10:00a Main Office Donn Garcia D.O. 90205 F52.21 R53.83 I10 Office Visit 06/05/2017 9:45a Main Office Donn Garcia D.O. 14764 I10 D50.9 K21.9 K76.0 R74.0 E80.7 Z23 Office Visit 04/11/2017 8:00a [place] [address] Z00.00 I10 D50.9 Z11.1 Z71.89 Office Visit 02/14/2017 4:30p Main Office Donn Garcia D.O. 77109 J20.9 Office Visit 10/25/2016 4:20p [place] [address] J20.9 Office Visit 04/28/2016 2:30p Main Office Donn Garcia D.O. 01151 J01.00 Office Visit 01/18/2016 2:55p [place] [address] Z00.00 D50.9 I10 Z11.1 Office Visit 11/22/2015 4:15p Main Office Richardson Melara M.D. 29025 I10 R19.7 D50.9 E87.6 K21.9 Z23 Z41.8 Office Visit 09/06/2015 11:00a Main Office Richardson Melara M.D. 77199 R19.7 D50.9 E87.6 E80.7 R74.0 K76.0 Office Visit 08/25/2015 3:00p Main Office Richardson Melara M.D. 07421 R19.7 Office Visit 08/23/2015 8:55a Main Office Donn Garcia D.O. 72998 J01.00 Office Visit 01/05/2015 8:30a Main Office Donn Garcia D.O. 29529 I10 J01.00 Z23 Z41.8 Office Visit 11/10/2014 1:45p Main Office Donn Garica D.O. 31086 J01.00 Office Visit 10/19/2014 3:30p Main Office Donn Garica D.O. 82748 I10 K21.9 Plan of Care Future Appointment(s):12/06/2017 8:30 am - Donn Garcia D.O. at Main [id number]/25/2017 - Donn Garcia D.O.L23.89 Allergic contact dermatitis due to other agentsNew Medication:Methylprednisolone 4 mgFollow up:nurse visit 1 wk for flu fup as needed
== END 2017-10-25 22:10 | disposition home or self-care (01) ==
LOC: UCEAST 21:56
DX: T78.40XA Allergy, unspecified, initial encounter (principal); W57.XXXA Bitten or stung by nonvenomous insect and other nonvenomous arthropods, initial encounter
CPT/HCPCS: 99212; G0463